=== PATIENT | male | born 1945 | race Caucasian/White ===

== ENCOUNTER → 2016-05-09 | Outpatient (CLI) | payer OTHER, MEDICARE ==
[2016-05-09 16:09] LABS: BUN/CREATININE RATIO 15.71 (6-20); CALCIUM 10.1 mg/dL (8.7-10.7); CREATININE 1.4 mg/dL (0.70-1.50); POTASSIUM 4.1 meq/L (3.8-5.2)
== END ==
LOC: MOB LAB 13:44
PROVIDERS: ATTEND Internal Medicine
DX: D75.89 Other specified diseases of blood and blood-forming organs (principal); I10 Essential (primary) hypertension; R35.8 Other polyuria; E83.41 Hypermagnesemia
CPT/HCPCS: 36415; 80048; 82607; 82746; 83735

== ENCOUNTER → 2016-07-12 | Outpatient (CLI) | payer OTHER, MEDICARE ==
--- NOTE | 2016-07-13 10:27 | DI ---
XR HIP COMPLETE MIN 2VW U/L,07/12/2016 4:03 PM: Clinical History: Right low back pain of unspecified chronicity. Previous Exam: None at this facility. Findings: AP and frog-leg views of the right hip are obtained as well as an AP view of the pelvis, and demonstr ate some mild early sclerosis of the right hip. There is some increased bone formation at the head ne ck junction of the right proximal femur. The lower lumbar spine is unremarkable. No fractures are seen. Impression: 1. 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 2. Increased new bone formation at the right head neck junction may represent underlying femoral acet abular impingement.
--- NOTE | 2016-07-13 10:30 | DI ---
XR PELVIS MIN 3VW,07/12/2016 4:03 PM: Clinical History: Pain in the right sacroiliac joint. Previous Exam: None at this facility. Findings: Multiple views of the sacroiliac joints are obtained, and demonstrate a large amount of dried stool t hroughout the rectum as well as the descending colon. There is no pathologic calcification identified . The sacroiliac joints are unremarkable. Impression: Normal sacroiliac joints.
== END ==
LOC: RAD 15:58
PROVIDERS: ATTEND Internal Medicine
DX: M54.5 Low back pain (principal); M53.3 Sacrococcygeal disorders, not elsewhere classified
CPT/HCPCS: 72190; 73502